=== PATIENT | male | born 1980 | race Caucasian/White ===

== ENCOUNTER 2017-03-21 02:48 | Emergency (ER) | payer SELFPAY ==
[~2017-03-21] VITALS: Ht 182.9 cm; Wt 70.3 kg
[~2017-03-21 02:48] MED LIST: BACTRIM DS 8001 TAB PO; BACTRIM SUSP 1100 ML PO; KEFLEX 500MG.500 MG PO; NOMEDS *; NOMEDS XX; PHENERGAN 25MG.25 M1 PO; ZITHROMAX 250M250 MG PO
[2017-03-21 03:09] LABS: URINE BILIRUBIN - DIPSTICK NEGATIVE (NEG); URINE BLOOD NEGATIVE (NEG)
[2017-03-21] MEDS ORDERED: FLEXERIL10 MG PO (04:17)
[2017-03-21] MEDS ORDERED: PREDNISONE 20MG20 MG PO (04:17)
--- NOTE | 2017-03-21 04:20 | Emergency Room Report ---
History of Present Illness Time Seen by MD Johnston Presenting Problem in Triage Pt arrived:Walked Presenting Problem:C/O SHARP, STABBING PAIN IN LOWER BACK Onset of symptoms date/time:03/20/17 or onset unknown for: Treatment Prior to Arrival: [employer] Provided by: Sepsis Risk Assessment: Temp: 98.0 B/P: 142/91 MAP: 108 Pulse: 101 Resp: 18 Recent fever? N Clinical Suspician of Infection? N Mental Status: 1 - Regular (Normal Baseline) Sepsis Risk:Low Sepsis Risk Have you (or family members/close friends) recently traveled outside the [place]? N If Yes, where/when: Have you had exposure to infectious disease within the past month? N TB? Other? Specify: Source patient, RN notes reviewed, family, old records Exam Limitations no limitations Comment lower lumbar pain with some rad to rt lower leg with no fever/rash/b/b sx and started yesderday with no trauma Cardiac Chest Pain Chest pain indicative of cardiac No Timing/Duration this evening Severity moderate ALLERGIES Coded Allergies: No Known Allergies (07/12/15) Home Medications Reported Medications No Home Medications (NO HOME MEDICATIONS) 1 X * ONCE History Medical History General CAD? No Angina: No MO: No Hypertension? No Hyperlipidemia? No CHF? No DVT? No PE? No COPD? No Asthma? No Anemia? No GERD? No Gastric ulcers? No GI Bleed? No Hernia? No Thyroid Problems? No Hypothyroidism? No CVA? No Seizures? No Diabetes? No Renal Insuffiency? No End Stage Renal Disease? No UTI? No Stones? No BPH? No GB Disease: No Nephritic Syndrome? No Asplenia? No Hepatitis? No Sickle Cell Disease? No Arthritis? No Migraines? No Cataracts? No Glaucoma? No MRSA? No HIV? No TB? No Anxiety? No Depression? No Cancer? No More? No Immunization Hx DT/Tetanus 07/12/2015 Surgical Hx Previous Surgery?N Family History Family Hx CAD Yes Social History Smoking Hx Smoker: Current Every Day Smoker Tobacco: Yes Type Cigarettes Packs/day < 1 Pack Alcohol Alcohol: No Drugs none Review of Systems All Other Systems Reviewed and Negative Constitutional denies fever Eyes denies drainage, denies photophobia ENT denies: ear discharge, epistaxis. Respiratory denies cough, denies shortness of breath Cardiovascular denies chest pain, denies palpitations, denies syncope Gastrointestinal see HPI, denies abdominal pain, nausea, denies vomiting Genitourinary denies: dysuria, frequency, hesitancy, hematuria. Musculoskeletal see HPI, back pain, denies joint pain, denies joint swelling Skin denies rash Psychiatric/Neurological denies headache, denies seizure Physical Exam Vital Signs Vital Signs Date Time Temp Pulse Resp B/P Pulse O2 O2 Flow FiO2 Ox Delivery Rate 03/21 0253 98.0 101 18 142/91 100 General Appearance no apparent distress Eye Exam - bilateral eye PERRL, bilateral eye EOMI Ear, Nose, Throat normal ENT inspection Neck non-tender Respiratory Status No: respiratory distress. 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 No Results/Orders Laboratory Tests 03/21/17 0304: Urine Color YELLOW, Urine Appearance CLEAR, Urine pH 7.5, Ur Specific [place] 1.010, Urine Protein NEGATIVE, Urine Ketones NEGATIVE, Urine Blood NEGATIVE, Urine Nitrate NEGATIVE, Urine Bilirubin NEGATIVE, Urine Urobilinogen 0.2, Ur Leukocyte Esterase NEGATIVE, Urine RBC OCC, Urine WBC 3-5, Urine Bacteria 1+, Urine Glucose NEGATIVE Orders Procedure Date/time Status CT LUMBAR SPINE W/O CONTRAST 03/[address] SCAN REQUEST 03/21 030 Complete URINALYSIS/COMPLETE 03/21 302 Complete XRAY/CT/US XRAY/CT/US CT L-spine CT interpretation by discussed w/radiologist Time results known: 418 CT Results no fracture seen (see report), abnormal Departure Departure Time of Disposition 414 Disposition DC Home or Self Care(routine) Clinical Impression Primary Impression: Lumbar disc disease with radiculopathy Condition STABLE Patient Instructions DI for Lumbar Radiculopathy Additional Instructions use meds and see pcp for follow up Discharge Counseling Counseled pt/family regarding diagnosis, test results, medications/RX, follow up needs Prescriptions Current Visit Scripts Cyclobenzaprine Hcl (Flexeril) 10 MG PO BID #14 TAB Prednisone (Prednisone 20MG) 20 MG PO BID #12 TAB ED Critical Care Critical Care No at [id number]
[2017-03-21 04:32] VITALS: BP 128/96
--- NOTE | 2017-03-21 06:25 | RADIOLOGY REPORT PS360 ---
CT LUMBAR SPINE W/O CONTRAST CLINICAL INDICATION: Low back pain with right leg pain BACK PAIN ORDERING PHYSICIAN: Gil Mena MD PATIENT AGE: 36 years COMPARISON: None TECHNIQUE:Axial, sagittal, and coronal images are generated and reviewed without contrast FINDINGS: No acute fracture or dislocation. No lytic or blastic changes. There is degenerative disc disease with small right paracentral/foraminal disc osteophyte complex at T 11-12 L3-L4: Unremarkable. L4-L5: Mild grade 1 spondylolytic spondylolisthesis. Approximately 4 mm anterolisthesis of L4 relative bulging disc at this level and there is mild sclerosis along the inferior endplate of L4 with a small Schmorl's node. There is mild bilateral foraminal narrowing. L5-S1: There is lumbarization of L5 IMPRESSION: 1. Grade 1 spondylolytic spondylolisthesis L4 on L5 with bulging disc and mild bilateral foraminal narrowing. 2. Degenerative disc disease T11-T12 with small right paracentral/foraminal disc osteophyte complex with right lateral recess and foraminal narrowing at that level
== END 2017-03-21 04:32 | disposition home or self-care (01) ==
LOC: ER 02:48
PROVIDERS: Emergency Medicine
DX: M51.16 Intervertebral disc disorders with radiculopathy, lumbar region (principal); F17.210 Nicotine dependence, cigarettes, uncomplicated